=== PATIENT | male | born 1950 | race Caucasian/White ===

== ENCOUNTER → 2024-01-05 | Outpatient (CLI) | payer MEDICARE, OTHER ==
[~2024-01-05] MED LIST: ASPI81TA26 PO; ATOR1TAB21 PO; COQ1200C2 PO; FENO48TA8 PO; MOBI15TA PO; MULTTAB12 PO; PRIM50TA6 PO
== END ==
LOC: M RAD 15:41
PROVIDERS: ATTEND Internal Medicine
DX: R25.1 Tremor, unspecified (principal)